=== PATIENT | male | born 1970 | race Caucasian/White ===

== ENCOUNTER 2018-09-19 06:59 | Day surgery (SDC) | payer MEDICARE ==
[2018-09-18 12:51] VITALS: BMI 26.4
[2018-09-19 07:45] LABS: BASO % 1.3 % (0-2.0); EOS % 2.5 % (0-4.5); HEMOGLOBIN 16.2 GM/dL (11.7-16.9); LYMPH % 10.6 % (8-40); MCH 30.1 pg (25.7-33.7); MCHC 33.8 g/dl (32.0-35.9); MEAN PLT VOLUME 7.7 fl (7.5-11.1); MONO % 13.4 % (3.8-10.2); NEUT % 72.2 % (42.8-82.8); PLATELET COUNT 249 K/MM3 (134-434); RBC 5.39 M/mm3 (4.00-5.60); RDW 13.4 % (11.9-15.9); WHITE BLOOD COUNT 7.1 K/mm3 (4.0-10.0)
[2018-09-19 08:03] LABS: INR 0.97 (0.83-1.09); PROTHROMBIN TIME (PATIENT) 11.4 SEC (9.7-13.0)
[2018-09-19 08:06] LABS: ACTIVATED PTT 31.3 SECONDS (25.2-36.5)
[2018-09-19 08:09] LABS: URINE APPEARANCE CLEAR; URINE BILIRUBIN NEGATIVE (NEGATIVE); URINE COLOR YELLOW; URINE GLUCOSE (UA) NEGATIVE (NEGATIVE); URINE KETONE NEGATIVE (NEGATIVE); URINE LEUK ESTERASE NEGATIVE (NEGATIVE); URINE NITRITE NEGATIVE (NEGATIVE); URINE PROTEIN NEGATIVE (NEGATIVE); URINE UROBILINOGEN 0.2 mg/dL (0.2-1.0)
[2018-09-19 08:22] LABS: ALBUMIN 4.2 g/dl (3.4-5.0); ALK PHOS 110 U/L (45-117); ANION GAP 6 MMOL/L (8-16); BILIRUBIN,TOTAL 0.6 mg/dL (0.2-1); BLOOD UREA NITROGEN 21 mg/dL (7-18); CALCIUM 9.1 mg/dL (8.5-10.1); CHLORIDE 105 mmol/L (98-107); CO2 30 mmol/L (21-32); CREATININE 1.2 mg/dL (0.55-1.3); GLUCOSE,RANDOM 89 mg/dL (74-106); POTASSIUM 4.5 mmol/L (3.5-5.1); SGOT/AST 22 U/L (15-37); SGPT/ALT 56 U/L (13-61); SODIUM 141 mmol/L (136-145); TOT PROT 6.7 g/dl (6.4-8.2)
[2018-09-19] MEDS ORDERED: MIDAZOLAM HCL 2 MG/2 ML SINGLE DOSE VIAL ONE ×2 (08:37)
--- NOTE | 2018-09-19 08:51 | HP ---
Satellite [facility] - Chief Complaint Chief Complaint: left wrist pain History of Present Illness: left scaphoid fracture History Source: Patient Limitations to Obtaining History: No Limitations - Past Medical History Allergies/Adverse Reactions: Allergies Allergy/AdvReac Type Severity Reaction Status Date / Time No Known Allergies Allergy Verified 09/19/18 08:13 - Current Medications Current Medications: Home Medications Medication Instructions Recorded Acetaminophen W/ Codeine #3 1 tab PO PRN 09/18/18 [Tylenol # 3 -] Alprazolam [Xanax] 0.25 mg PO PRN 09/18/18 Satellite Physical Exam - Physical Examination Vital Signs: Vital Signs Period Temp Pulse Resp BP Sys/[place] Pulse Ox Last 24 Hr 97.9 F-97.9 F 77-77 20-20 116-116/72-72 94 General Appearance: Well Nourished ENT: Clear Lung: Clear to auscultation Heart: Regular rate & rhythm Breasts: Soft Abdomen: Soft Extremities: No edema Satellite Impression/Plan - Impression/Plan Impression: left scaphoid fracture Operative Procedure: left scaphoid ORIF Date to be Performed: 09/19/18
[2018-09-19] MEDS ORDERED: SUCCINYLCHOLINE CHLORIDE 200 MG/10 ML VIAL ONE ×2 (09:21→09:22)
[2018-09-19] MEDS ORDERED: PROPOFOL 20 ML ONE ×2 (09:21→09:36)
[2018-09-19] MEDS ORDERED: LIDOCAINE HCL/PF 2% SDV 5ML VIAL ONE (09:22)
[2018-09-19] MEDS ORDERED: DEXAMETHASONE SOD PHOSPHATE 4 MG/1 ML VIAL ONE (09:22)
[2018-09-19] MEDS ORDERED: ceFAZolin SODIUM 1 GM VIAL IVPB ONE (09:34)
[2018-09-19] MEDS ORDERED: ceFAZolin SODIUM 1 GM VIAL ONE (09:42)
[2018-09-19] MEDS ORDERED: oxyCODONE HCL 5 MG TABLET PO PRN (10:37)
[2018-09-19] MEDS ORDERED: ONDANSETRON 4 MG/2 ML VIAL IVPUSH PRN (10:37)
[2018-09-19] MEDS ORDERED: LACTATED RINGERS SOLUTION 1,000 ML IV SCH (10:45)
--- NOTE | 2018-09-19 10:46 | OP ---
Operative Note - Note: Operative Date: 09/19/18 Pre-Operative Diagnosis: left scaphoid fracture Operation: left scaphoid ORIF Implants: Acutrak headless scaphoid compression screw, 24mm Post-Operative Diagnosis: Same as Pre-op Surgeon: Raf Chi Anesthesiologist/RESTAURANT ASSOCIATE: Sherly Peña Anesthesia: General, Local Estimated Blood Loss (mls): 0 Drains, Volume Out (mls): 0 Blood Volume Replaced (mls): 0 Fluid Volume Replaced (mls): 700 Operative Report Dictated: Yes
--- NOTE | 2018-09-19 11:16 | OP ---
DATE OF OPERATION: DATE OF DICTATION: 09/19/2018 PREOPERATIVE DIAGNOSIS: Left scaphoid fracture. POSTOPERATIVE DIAGNOSIS: Left scaphoid fracture. PROCEDURE: Open reduction internal fixation left scaphoid. SURGEON: Gretel Jasmine MD LEASING CONSULTANT: None. ANESTHESIA: Sherly Peña CRNA, left interscalene block and LMA anesthesia. DRAINS: None. COMPLICATIONS: None. SPECIMENS: None. IMPLANT: Acutrak headless compression scaphoid screw. BLOOD LOSS: None. BLOOD GIVEN: None. FLUID REPLACEMENT: 500 mL. INDICATIONS: This patient is a 48-year-old male with a preoperative diagnosis of a subacute fracture of the mid waist of the left scaphoid. After understanding the potential risks, complications, alternatives, benefits to surgery versus nonsurgical treatment, the patient elected to undergo this procedure. DESCRIPTION OF PROCEDURE: The patient was brought to the operating room. Peripheral IV place. IV sedation given. Given 2 g of IV Ancef. Left interscalene block had been performed. LMA anesthesia was induced. The left upper extremity was prepped and draped in a sterile fashion, elevated, exsanguinated with an Esmarch bandage. Tourniquet inflated to 250 mmHg. A small curvilinear incision was made with a No. 15 scalpel blade volar over the scaphoid tubercle. Dissection was done down to the scaphoid tubercle with small Hamilton scissors. A K-wire was placed in the scaphoid tubercle in the 45/45 position. X-rays were taken in multiple planes. I then adjusted the position of the K-wire referencing off the 1st wire putting it into a more center/center position with the appropriate length and angle. I removed the 1st K-wire. X-rays were taken in multiple AP, lateral, PA, and oblique planes. Overall, I liked the position. It crossed the fracture at 90 degrees, went down to the proximal cortex, and overall in a very good position. Measured 30 mm, overdrilled the proximal cortex, and then put in a 24-mm headless, tapered compression scaphoid screw. It went down to the appropriate depth. I buried the head. Multiple x-rays were taken throughout the screw delivery. I was very happy with this position and length and got excellent compression across the fracture site. The wire was removed. Final x-rays were taken. The area was irrigated and washed out. Closure was done with 4-0 undyed Vicryl in the deep muscular layer, the deep dermal layer, and then final skin reapproximation was done with a running subcuticular 4-0 Biosyn stitch. The area was then washed and dried, covered with Steri-Strips, 4 x 4's, fluffs between the fingers, Webril, and a 5-inch Orthoglass splint was put on in a thumb spica fashion, wrapped with Suad and Coban. The require was taken down after a total tourniquet time of 40 minutes. There were no complications during the case. The patient tolerated the procedure very well and was brought to the ambulatory recovery room in stable condition. GRETEL JASMINE M.D. [id number]
--- NOTE | 2018-09-19 11:48 | EKG ---
Test Reason : Blood Pressure : / mmHG Vent. Rate : 064 BPM Atrial Rate : 064 BPM P-R Int : 144 ms QRS Dur : 082 ms QT Int : 410 ms P-R-T Axes : 057 079 072 degrees QTc Int : 422 ms NORMAL SINUS RHYTHM NORMAL ECG NO PREVIOUS ECGS AVAILABLE Confirmed by ANNA BANERJEE, ROBBIE ([id number]) on 09/19/2018 11:48:24 AM Referred By: Raf Chi Confirmed By:ROBBIE CASTILLO MD
[2018-09-19 13:09] VITALS: BP 118/67; PULSE 68; TEMP 97.6
== END 2018-09-19 12:35 | disposition home or self-care (01) ==
LOC: JASU-SURG 06:59
PROVIDERS: ATTEND Orthopaedic Surgery
PROC: 0PSN04Z Reposition Left Carpal with Internal Fixation Device, Open Approach (ICD-10-PCS; principal; 2018-09-19 09:00)
DX: S62.022A Displaced fracture of middle third of navicular [scaphoid] bone of left wrist, initial encounter for closed fracture (principal); X58.XXXA Exposure to other specified factors, initial encounter; Y93.9 Activity, unspecified; Y92.9 Unspecified place or not applicable; Y99.9 Unspecified external cause status
CPT/HCPCS: 36415; 76000-TC-FY; 80053; 81003; 85025; 85610; 85730; 93005; 93010; 94760